=== PATIENT | female | born 1950 | race Asian ===

== ENCOUNTER 2017-03-17 18:37 | Emergency (ER) | payer OTHER ==
[~2017-03-17] VITALS: Ht 162.6 cm; Wt 77.1 kg
[2017-03-17 18:37] VITALS: BP 124/61
[2017-03-17] MEDS ORDERED: CHOL100040 PO (18:58)
== END 2017-03-17 21:03 | disposition home or self-care (01) ==
LOC: ER 18:44
DX: T78.1XXA Other adverse food reactions, not elsewhere classified, initial encounter (principal); Z91.018 Allergy to other foods; X58.XXXA Exposure to other specified factors, initial encounter
CPT/HCPCS: 99281; A4606; Z7502; Z7610